=== PATIENT | female | born 1950 | race African-American/Black ===

== ENCOUNTER 2017-07-28 21:06 | Emergency (ER) | payer MEDICARE, MEDICAID ==
[~2017-07-28] VITALS: Ht 177.8 cm; Wt 107.0 kg
[~2017-07-28 21:06] MED LIST: ALBUAER3 INH; ALPR2TAB3 PO; AMLO10TA2 PO; COMB0.2S EACH EYE; DORZ2SOL LEFT EYE; HYDR1CRE TOPICAL; HYDR25TA5 PO; LOSA100T PO; OMEP40CA2 PO; TRAV0.00 LEFT EYE
[2017-07-28 22:42] VITALS: BP 150/74; PULSE 90; RESP 18; TEMP 99.3; O2SAT 99
[2017-07-28 23:17] VITALS: BP 131/86; PULSE 98; RESP 18; O2SAT 100
[2017-07-28] MEDS ORDERED: DIAZEPAM 5 MG TAB PO ONE (23:30)
[2017-07-28] MEDS ORDERED: KETOROLAC TROMETHAMINE 60 MG/2 ML (IM) VIAL IM ONE (23:30)
--- NOTE | 2017-07-28 23:32 | PD ---
HPI Chief Complaint: Pain: Acute or Chronic Time Seen by Provider: 22:58 (Bertrand Coronado MD) Travel History International Travel<30 days: No Contact w/Intl Traveler<30days: No Traveled to known affect area: No (Bertrand Coronado MD) History of Present Illness HPI Patient is a 67-year-old obese -[place] woman who is coming in saying that she is having severe pain in her left flank back radiating down her left gluteal area down the lateral aspect of her leg. She has history of osteoarthritis she has had a history of bilateral hip replacements in the last 7 years due to osteoarthritis. Patient has degenerative joint disease disc disease in her lower back she reports that now she is having this severe pain is worsened over the last few days she is complaining that she cannot lie in the position in the bed because his heart exam much is asking me to turn onto her right side because the pain is so severe patient denies dysuria she denies hematuria she has no signs of this being a kidney stone she has no history of kidney stone she has no history of diverticulitis no history of pancreatitis and no history of colitis denies diarrhea constipation or any other symptoms except pain localized radiating down her left leg (Bertrand Coronado MD) PFSH Past Medical History Arthritis: Yes Asthma: No Autoimmune Disease: No Blood Disorders: No Bipolar Disorder: Yes Anxiety: Yes Depression: Yes Heart Rhythm Problems: No Cancer: No Cardiovascular Problems: Yes (HTN) High Cholesterol: No Chemotherapy: No Chest Pain: No Congestive Heart Failure: No COPD: No Cerebrovascular Accident: No Diabetes: No Diminished Hearing: No Endocrine: No Gastrointestinal Disorders: No GERD: Yes Glaucoma: No Genitourinary: No Headaches: No Hepatitis: No Hiatal Hernia: No Hypertension: Yes Immune Disorder: No Implanted Vascular Access Dvce: Yes Kidney Stones: No Musculoskeletal: Yes Neurologic: No Psychiatric: Yes Reproductive: No Respiratory: No Myocardial Infarction: No Radiation Therapy: No Renal Failure: No Seizures: No Sickle Cell Disease: No Sleep Apnea: No Thyroid Disease: No Ulcer: No Tetanus Vaccination: Unknown Influenza Vaccination: No ?: Not Menopausal: Yes (Bertrand Coronado MD) Past Surgical History Abdominal Surgery: Yes (EXP LAP.) Body Medical Devices: METAL ON BOTH HIPS Cardiac Surgery: No Ear Surgery: No Endocrine Surgery: No Eye Surgery: No Genitourinary Surgery: No Gynecologic Surgery: No Joint Replacement: Yes (BILAT TOTAL HIPS, RIGHT IN 2009 LEFT IN 2007) Neurologic Surgery: No Oral Surgery: No Thoracic Surgery: No Other Surgery: Yes (Bertrand Coronado MD) Social History Alcohol Use: No Tobacco Use: Yes (1pack 4-5 days) Substance Use: No (Bertrand Coronado MD) Allergies-Medications (Allergen,Severity, Reaction): Coded Allergies: Influenza Virus Vaccines (Verified Allergy, Severe, pt states has pneumonia like symptoms after taking the, 04/04/17) penicillin G (Verified Allergy, Intermediate, SWELLING, 04/04/17) Reported Meds & Prescriptions Reported Meds & Active Scripts Active Proair Hfa 8.5 GM Inh (Albuterol Sulfate) 90 Mcg/Act Aer 1 Puff INH Q4H PRN 108 mcg/actuation Alprazolam 2 Mg Tab 2 Mg PO QID PRN Hydrochlorothiazide 25 Mg Tab 25 Mg PO DAILY Losartan (Losartan Potassium) 100 Mg Tab 100 Mg PO DAILY Amlodipine (Amlodipine Besylate) 10 Mg Tab 10 Mg PO DAILY Combigan Opth Drops (Brimonidine-Timolol Opth Drops) 0.2-0.5% Soln 1 Drop EACH EYE BID Dorzolamide Opth Drops (Dorzolamide HCl) 2% Soln 1 Drop LEFT EYE BID Travatan Z Opth Drops (Travoprost) 0.004 % Soln 1 Drop LEFT EYE HS Omeprazole 40 Mg Cap 40 Mg PO DAILY Hydrocortisone Topical 1% Cream 1 Applic TOPICAL BID Reported Combigan Opth Drops (Brimonidine-Timolol Opth Drops) 0.2-0.5% Soln 1 Drop EACH EYE BID (Mary Gomez MD) Review of Systems Except as stated in HPI: all other systems reviewed are Neg (Bertrand Coronado MD) Physical Exam Narrative GENERAL: Appears to be in pain and distress rubbing her left side SKIN: Warm and dry. HEAD: Atraumatic. Normocephalic. EYES: Pupils equal and round. No scleral icterus. No injection or drainage. ENT: No nasal bleeding or discharge. Mucous membranes pink and moist. NECK: Trachea midline. No JVD. CARDIOVASCULAR: Regular rate and rhythm. RESPIRATORY: No accessory muscle use. Clear to auscultation. Breath sounds equal bilaterally. GASTROINTESTINAL: Abdomen soft, non-tender, nondistended. Hepatic and splenic margins not palpable. MUSCULOSKELETAL: Extremities on the left side left gluteal area down the left lateral aspect of the thigh sciatic distribution pain and tenderness pulses in her feet are normal ankles are not swollen . No obvious deformities. NEUROLOGICAL: Awake and alert. No obvious cranial nerve deficits. Motor grossly within normal limits. Five out of 5 muscle strength in the arms and legs. Normal speech. PSYCHIATRIC: Appropriate mood and affect; insight and judgment normal. (Bertrand Coronado MD) Data Data Last Documented VS Vital Signs Date Time Temp Pulse Resp B/P (MAP) Pulse Ox O2 Delivery O2 Flow Rate FiO2 07/29/17 11:27 82 16 112/73 (86) 97 Room Air 07/29/17 07:09 98.1 (Mary Gomez MD) Orders Orders Ketorolac Inj (Toradol Inj) (07/28/17 23:30) Diazepam (Valium) (07/28/17 23:30) Ct Lumb Spine W/O Contrast (07/29/17 ) Oxycodone-Acetamin 5-325 Mg (Percocet (07/29/17 03:00) Mri L Spine W/O Contrast (07/29/17 ) Hydromorphone Pf Inj (Dilaudid Pf Inj) (07/29/17 06:30) Hydromorphone Pf Inj (Dilaudid Pf Inj) (07/29/17 06:59) (Mary Gomez MD) MDM Medical Decision Making Medical Screen Exam Complete: Yes Emergency Medical Condition: Yes Differential Diagnosis muscle spasm vs strain vs disc disease chronic vs herniation acute with cord compression vs radiculopathy from foremen impingement by disc disease other Narrative Course CT shows some disc protrusion and spinal stenosis, will order MRI and sign out to on coming attending (Bertrand Coronado MD) Narrative Course MRI: 1. Moderate size right paracentral protrusion/extrusion at the L1-2 level with mass effect on the right side of the thecal sac. 2. Mild central canal stenosis at L3-4 and L4-5 levels secondary to disc bulges and degenerative changes involving the facet joints. 3. Degenerative changes about the lower facet joints. Will d/c her on steroids and with referral to Dr. Levin for definitive management. (Mary Gomez MD) Diagnosis Primary Impression: Degenerative disc disease, lumbar Referrals: Linwood Levin MD Med/Other Pt SpecificInfo: Prescription(s) given (Mary Gomez MD) Scripts Prednisone (Prednisone) 50 Mg Tab 50 MG PO DAILY for 5 Days, #5 TAB 0 Refills Prov: Mary Gomez MD 07/29/17 Hydrocodone-Acetaminophen ([place]) 5 Mg-325 Mg Tab 1 TAB PO Q4H Y for PAIN, #12 TAB 0 Refills Prov: Mary Gomez MD 07/29/17 Disposition: 01 DISCHARGE HOME Condition: Stable Bertrand Coronado MD Jul 28, 2017 23:32 Mary Gomez MD Jul 29, 2017 12:08
[2017-07-29 02:45] VITALS: BP 140/82; PULSE 80; RESP 16; O2SAT 98
[2017-07-29] MEDS ORDERED: oxyCODONE/ACETAMINOPHEN 5 MG/325 MG TAB PO ONE (03:00)
--- NOTE | 2017-07-29 03:27 | RADRPT ---
EXAM DATE/TIME: 07/29/2017 03:04 [facility] COMPARISON: No previous studies available for comparison. INDICATIONS : Lower back pain radiating down left leg. No known injury. RADIATION DOSE: 35.86 CTDIvol (mGy) MEDICAL HISTORY : Osteoarthritis. SURGICAL HISTORY : Bilateral hip replacements. ENCOUNTER: Initial ACUITY: 1 day PAIN SCALE: 10/10 LOCATION: Lumbar spine TECHNIQUE: Volumetric scanning of the lumbar spine was performed. Multiplanar reconstructions in the sagittal, coronal and oblique axial planes were performed. Using automated exposure control and adjustment of the mA and/or kV according to patient size, radiation dose was kept as low as reasonably achievable t o obtain optimal diagnostic quality images. DICOM format image data is available electronically for review and comparison. FINDINGS: VERTEBRAE: Normal vertebral body height. ALIGNMENT: No evidence of subluxation. T12-L1: The thecal sac has a normal diameter. No evidence of disc bulge or protrusion. The neural foramina are patent bilaterally. L1-L2: Moderate to large central disc fragment with superior extrusion noted and causing at least mild spina l stenosis. No associated foraminal stenosis. L2-L3: There is diffuse bulging of the disc annulus and moderate bilateral facet osteoarthritis. Mild bilate ral foraminal stenosis. L3-L4: There is diffuse bulging of the disc annulus and moderate to severe bilateral facet osteoarthritis. T here is mild bilateral foraminal stenosis. L4-L5: There is a small to moderate, broad but mostly left paracentral/foraminal disc protrusion and moderat e to severe bilateral facet osteoarthritis. There is mild spinal stenosis, mostly the left lateral re cess. There is mild right and mild to moderate left foraminal stenosis. L5-S1: There is a small, broad/diffuse posterior disc protrusion and moderate bilateral facet osteoarthritis . There is mild to moderate right and mild left foraminal stenosis. CONCLUSION: 1. Multilevel lumbar spine degenerative changes as above. Prominent central right paracentral disc fr agment at L1/L2 with associated spinal stenosis. Otherwise generally small or small to moderate broad protrusions. 2. Generally mild or mild to moderate degrees of foraminal stenosis. 3. No fracture or subluxation of the lumbar spine. Elliott Ronquillo MD on July 29, 2017 at 3:18 Board Certified Radiologist. This report was verified electronically.
[2017-07-29] MEDS ORDERED: HYDROmorphone HCL PF 1 MG/ML VIAL IM ONE (06:30)
[2017-07-29] MEDS ORDERED: HYDROmorphone HCL PF 2 MG/ML VIAL ONE (06:59)
[2017-07-29 07:09] VITALS: BP 105/85; PULSE 60; RESP 20; TEMP 98.1; O2SAT 100
[2017-07-29 11:27] VITALS: BP 112/73; PULSE 82; RESP 16; O2SAT 97
--- NOTE | 2017-07-29 11:50 | RADRPT ---
EXAM DATE/TIME: 07/29/2017 10:41 [facility] COMPARISON: CT LUMBAR SPINE W/O CONTRAST, July 29, 2017, 3:04. INDICATIONS : Lower back pain radiating down left leg. Abnormal lumbar CT demonstrating an L1-2 disc protrusion. MEDICAL HISTORY : Hypertension. Gastroesophageal reflux disease. SURGICAL HISTORY : Bilat hip replacement ENCOUNTER: Initial ACUITY: 1 day PAIN SCORE: 3/10 LOCATION: Left hip/lower back TECHNIQUE: Multiplanar multisequence MRI of the lumbar spine was performed without contrast. FINDINGS: The most caudal appearing lumbar vertebra is numbered as L5. VERTEBRAE: Homogeneous signal. Normal alignment. Discs: There is an anterior extradural defect noted on the sagittal images at the L1-2 level. This extends c ephalad approximately 1 cm posterior to the lower half of the L1 vertebral body. [place]: Normal level and configuration. T12-L1: The thecal sac has a normal diameter. No evidence of disc bulge or protrusion. The neural foramina are patent bilaterally. L1-L2: There is a moderate size right paracentral protrusion last extrusion measuring approximately 11 mm cr oss the base and 4 mm in AP diameter with mass effect on the right side of the thecal sac. Neural for samantha are patent. L2-L3: There is a mild annular disc bulge with mild flattening of the anterior thecal sac no focal protrusio n.. The neural foramina are patent bilaterally. L3-L4: There is a mild annular disc bulge flattening of the anterior thecal sac and no focal protrusion. The neural foramina are patent. Moderate degenerative changes involving facet joints with mild central c anal stenosis. L4-L5: There is a mild annular disc bulge with minimal flattening of the thecal sac and no focal protrusion. Moderate degenerative changes noted about the facet joints. There is mild central canal stenosis. L5-S1: The thecal sac has a normal diameter. No evidence of disc bulge or protrusion. The neural foramina are patent bilaterally. There are mild degenerative change involving the facet joints. CONCLUSION: 1. Moderate size right paracentral protrusion/extrusion at the L1-2 level with mass effect on the rig ht side of the thecal sac. 2. Mild central canal stenosis at L3-4 and L4-5 levels secondary to disc bulges and degenerative farrell ges involving the facet joints. 3. Degenerative changes about the lower facet joints. Eliazar Chua MD on July 29, 2017 at 11:38 Board Certified Radiologist. This report was verified electronically.
[2017-07-29] MEDS ORDERED: PRED50 PO (12:07)
[2017-07-29] MEDS ORDERED: NORC5TAB PO (12:07)
[2017-07-29] MEDS ORDERED: ACETAMINOPHEN/HYDROcodone 325 MG/5 MG TAB PO ONE (12:15)
== END 2017-07-29 12:51 | disposition home or self-care (01) ==
LOC: NEPC 21:06
DX: M51.36 Other intervertebral disc degeneration, lumbar region (principal); M48.061 Spinal stenosis, lumbar region without neurogenic claudication; M51.26 Other intervertebral disc displacement, lumbar region; M19.90 Unspecified osteoarthritis, unspecified site; F31.9 Bipolar disorder, unspecified; F41.9 Anxiety disorder, unspecified; I10 Essential (primary) hypertension; K21.9 Gastro-esophageal reflux disease without esophagitis; F17.200 Nicotine dependence, unspecified, uncomplicated
CPT/HCPCS: 72131; 72148; 96372; 99284; J1170; J1885

== ENCOUNTER 2017-10-24 18:53 | Emergency (ER) | payer MEDICARE, MEDICAID ==
[~2017-10-24] VITALS: Ht 177.8 cm; Wt 81.0 kg
[~2017-10-24 18:53] MED LIST changes: +NORC5TAB PO; +PRED50 PO
[2017-10-24 19:17] VITALS: BP 98/64; PULSE 81; RESP 18; TEMP 99.4; O2SAT 99
--- NOTE | 2017-10-24 19:44 | PD ---
HPI Chief Complaint: Injury Time Seen by Provider: 19:30 Travel History International Travel<30 days: No Contact w/Intl Traveler<30days: No Traveled to known affect area: No History of Present Illness HPI 67-year-old female presents to the emergency department for evaluation of right ankle pain. Patient states she was at her orthopedic doctor today, having her hip evaluated. She tells me that he flexed her right ankle and she felt a pop. She states since then it has been painful to ambulate on. She reports moderate right ankle pain. It does not radiate anywhere. She has no other symptoms to report. PFSH Past Medical History Arthritis: Yes Asthma: No Autoimmune Disease: No Blood Disorders: No Bipolar Disorder: Yes Anxiety: Yes Depression: Yes Heart Rhythm Problems: No Cancer: No Cardiovascular Problems: Yes (HTN) High Cholesterol: No Chemotherapy: No Chest Pain: No Congestive Heart Failure: No COPD: No Cerebrovascular Accident: No Diabetes: No Diminished Hearing: No Endocrine: No Gastrointestinal Disorders: No GERD: Yes Glaucoma: No Genitourinary: No Headaches: No Hepatitis: No Hiatal Hernia: No Hypertension: Yes Immune Disorder: No Implanted Vascular Access Dvce: Yes Kidney Stones: No Musculoskeletal: Yes Neurologic: No Psychiatric: Yes Reproductive: No Respiratory: No Immunizations Current: Yes Myocardial Infarction: No Radiation Therapy: No Renal Failure: No Seizures: No Sickle Cell Disease: No Sleep Apnea: No Thyroid Disease: No Ulcer: No Tetanus Vaccination: Unknown Influenza Vaccination: No Menopausal: Yes Past Surgical History Abdominal Surgery: Yes (EXP LAP.) Body Medical Devices: METAL ON BOTH HIPS Cardiac Surgery: No Ear Surgery: No Endocrine Surgery: No Eye Surgery: No Genitourinary Surgery: No Gynecologic Surgery: No Joint Replacement: Yes (BILAT TOTAL HIPS, RIGHT IN 2009 LEFT IN 2007) Neurologic Surgery: No Oral Surgery: No Thoracic Surgery: No Other Surgery: Yes Social History Alcohol Use: No Tobacco Use: Yes (1pack 4-5 days) Substance Use: No Allergies-Medications (Allergen,Severity, Reaction): Coded Allergies: Influenza Virus Vaccines (Verified Allergy, Severe, pt states has pneumonia like symptoms after taking the, 10/24/17) penicillin G (Verified Allergy, Intermediate, SWELLING, 10/24/17) Reported Meds & Prescriptions Reported Meds & Active Scripts Active Prednisone 50 Mg Tab 50 Mg PO DAILY 5 Days [place] (Hydrocodone-Acetaminophen) 5 Mg-325 Mg Tab 1 Tab PO Q4H PRN Proair Hfa 8.5 GM Inh (Albuterol Sulfate) 90 Mcg/Act Aer 1 Puff INH Q4H PRN 108 mcg/actuation Alprazolam 2 Mg Tab 2 Mg PO QID PRN Hydrochlorothiazide 25 Mg Tab 25 Mg PO DAILY Losartan (Losartan Potassium) 100 Mg Tab 100 Mg PO DAILY Amlodipine (Amlodipine Besylate) 10 Mg Tab 10 Mg PO DAILY Combigan Opth Drops (Brimonidine-Timolol Opth Drops) 0.2-0.5% Soln 1 Drop EACH EYE BID Dorzolamide Opth Drops (Dorzolamide HCl) 2% Soln 1 Drop LEFT EYE BID Travatan Z Opth Drops (Travoprost) 0.004 % Soln 1 Drop LEFT EYE HS Omeprazole 40 Mg Cap 40 Mg PO DAILY Hydrocortisone Topical 1% Cream 1 Applic TOPICAL BID Reported Combigan Opth Drops (Brimonidine-Timolol Opth Drops) 0.2-0.5% Soln 1 Drop EACH EYE BID Review of Systems Except as stated in HPI: all other systems reviewed are Neg Physical Exam Narrative GENERAL: Well-nourished, well-developed female patient in no acute distress SKIN: Focused skin assessment warm/dry. HEAD: Normocephalic. EYES: No scleral icterus. No injection or drainage. NECK: Supple, trachea midline. No JVD or lymphadenopathy. CARDIOVASCULAR: Regular rate and rhythm without murmurs, gallops, or rubs. RESPIRATORY: Breath sounds equal bilaterally. No accessory muscle use. EXTREMITY: The right ankle is minimally swollen and tender over the dorsal lateral aspect but the skin is intact and there is no ligamentous instability. There is no deformity. The foot and toes are warm and well-perfused. Sensation to pain and light touch is intact. Data Data Last Documented VS Vital Signs Date Time Temp Pulse Resp B/P (MAP) Pulse Ox O2 Delivery O2 Flow Rate FiO2 10/24/17 19:17 99.4 81 18 98/64 (75) 99 Orders Orders Ankle, Complete (Sup1ucp) (10/24/17 ) [facility] Medical Decision Making Medical Screen Exam Complete: Yes Emergency Medical Condition: Yes Medical Record Reviewed: Yes Differential Diagnosis Fracture versus contusion versus sprain versus tendinitis Narrative Course 67-year-old female presents emergency department for evaluation right ankle pain. Patient has no definite injury but reports pain started when she was having an assessment earlier today. Patient appears well. There is no deformity of the ankle. X-ray imaging is complete and negative for acute bony abnormality. Patient is encouraged to continue pain medication as already prescribed. She has it wrapped. She agrees to return immediately with any acute worsening symptoms. 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 Med/Other Pt SpecificInfo: No Change to Meds Disposition: 01 DISCHARGE HOME Condition: Stable Josie Carter Oct 24, 2017 19:44
--- NOTE | 2017-10-24 20:47 | RADRPT ---
EXAM DATE: 10/24/2017 7:57 PM EDT AGE/SEX: 67 years / Female INDICATIONS: Right ankle pain after patients doctor flexed her foot back and forth today. No prior i njuries. CLINICAL DATA: This is the patient's initial encounter. Patient reports that signs and symptoms have been present for 1 day and indicates a pain score of 10/10. MEDICAL/SURGICAL HISTORY: . Osteoarthritis. . Bilateral hip replacements. COMPARISON: No prior exams available for comparison. FINDINGS: 3 views of the right ankle demonstrate no fracture or dislocation. The ankle mortise is intact. [place] alization is within normal limits and there is no significant arthropathy. No soft tissue abnormality or radiopaque foreign body is identified. CONCLUSION: No acute abnormality is identified. Electronically signed by: Elliott Alejandre MD 10/24/2017 8:45 PM EDT
== END 2017-10-24 20:59 | disposition home or self-care (01) ==
LOC: NEPK 18:53
DX: M25.571 Pain in right ankle and joints of right foot (principal); F17.200 Nicotine dependence, unspecified, uncomplicated; K21.9 Gastro-esophageal reflux disease without esophagitis; I10 Essential (primary) hypertension
CPT/HCPCS: 73610; 99283